=== PATIENT | female | born 1945 | race Caucasian/White ===

== ENCOUNTER 2017-10-13 07:22 | Inpatient (IN) | payer OTHER ==
[~2017-10-13] VITALS: Ht 160 cm; Wt 86.2 kg
[~2017-10-13 07:22] MED LIST: CELEXA20 MG PO; HYDROCH PO; HYDRODIURIL12.5 MG PO; LISINOPRIL10 MG PO; PERCOCET 5/3251 TAB PO; POLY119PG PO; TRAM1TAB98 PO
[2017-10-19] MEDS ORDERED: Megace PO (12:48)
[2017-10-19] MEDS ORDERED: CELEXA20 MG PO (12:49)
[2017-10-19] MEDS ORDERED: FAMOTIDINE20 MG PO (12:50)
== END 2017-10-19 17:18 | disposition other institution (70) | DRG 682 ==
LOC: ER 07:22 → SURH 16:53 → MEDI 16:53 → SURH 18:03 → SEC-K 10-14 14:14 → SURH 10-14 14:14
PROC: 4A033R1 Measurement of Arterial Saturation, Peripheral, Percutaneous Approach (ICD-10-PCS; 2017-10-13)
PROC: BW28ZZZ Computerized Tomography (CT Scan) of Head (ICD-10-PCS; 2017-10-13)
PROC: 30233N1 Transfusion of Nonautologous Red Blood Cells into Peripheral Vein, Percutaneous Approach (ICD-10-PCS; principal; 2017-10-14)
PROC: 02HV33Z Insertion of Infusion Device into Superior Vena Cava, Percutaneous Approach (ICD-10-PCS; 2017-10-15)
DX: N17.8 Other acute kidney failure (principal); K72.00 Acute and subacute hepatic failure without coma; C18.4 Malignant neoplasm of transverse colon; C78.7 Secondary malignant neoplasm of liver and intrahepatic bile duct; R18.8 Other ascites; E87.1 Hypo-osmolality and hyponatremia; N39.0 Urinary tract infection, site not specified; E86.0 Dehydration; N18.4 Chronic kidney disease, stage 4 (severe); E87.5 Hyperkalemia; G47.33 Obstructive sleep apnea (adult) (pediatric); E66.8 Other obesity; Z68.39 Body mass index [BMI] 39.0-39.9, adult; E88.09 Other disorders of plasma-protein metabolism, not elsewhere classified; G89.3 Neoplasm related pain (acute) (chronic); D63.0 Anemia in neoplastic disease; R41.82 Altered mental status, unspecified; I12.9 Hypertensive chronic kidney disease with stage 1 through stage 4 chronic kidney disease, or unspecified chronic kidney disease